=== PATIENT | male | born 1945 | race Caucasian/White ===

== ENCOUNTER → 2019-04-16 08:38 | Outpatient (BNVA) | payer MEDICARE, MEDICAID, SELFPAY | PROVIDERS: Family Provider Family Medicine; PCP Family Medicine; Visit Provider Urology | DX: N30.20 Other chronic cystitis without hematuria (principal); N99.89 Other postprocedural complications and disorders of genitourinary system | CPT/HCPCS: 81001 ==

== ENCOUNTER → 2019-05-26 11:46 | Outpatient (BNVA) | payer MEDICARE, MEDICAID, SELFPAY | PROVIDERS: Family Provider Family Medicine; PCP Family Medicine; Visit Provider Specialist | DX: Z96.643 Presence of artificial hip joint, bilateral (principal) | CPT/HCPCS: 73502 ==

== ENCOUNTER 2019-05-29 07:03 | Outpatient (CLI) | payer MEDICARE, MEDICAID, SELFPAY ==
--- NOTE | 2019-05-29 07:15 | XR_ITS ---
WS: [id number] XR KUB [id number] REASON FOR EXAM: RECURRENT UTI FINDINGS: Gas and fecal stasis throughout the colon are seen. Both hips are replacement prosthesis. Small calcified densities are seen in the left kidney suggesting renal calculus. There is arteriosclerotic changes of the iliac arteries. XR/XR KUB [id number] IMPRESSION: Small calcified densities suggesting renal calculus on the left.
== END 2019-05-29 07:04 | disposition home or self-care (01) ==
LOC: RAD 07:05
PROVIDERS: Family Provider Family Medicine; PCP Family Medicine; Visit Provider Urology
DX: N39.0 Urinary tract infection, site not specified (principal); N28.89 Other specified disorders of kidney and ureter; I70.8 Atherosclerosis of other arteries; Z96.643 Presence of artificial hip joint, bilateral
CPT/HCPCS: 74018; 81001; 87077; 87086; 87186

== ENCOUNTER → 2019-07-30 10:31 | Outpatient (BNVA) | payer MEDICARE, MEDICAID, SELFPAY | PROVIDERS: Family Provider Family Medicine; PCP Family Medicine; Visit Provider Urology | DX: N30.80 Other cystitis without hematuria (principal); R33.9 Retention of urine, unspecified | CPT/HCPCS: 81001 ==

== ENCOUNTER → 2019-09-25 12:12 | Outpatient (BNVA) | payer MEDICARE, MEDICAID, SELFPAY | PROVIDERS: Family Provider Family Medicine; PCP Family Medicine; Visit Provider Internal Medicine Cardiovascular Disease | DX: E78.2 Mixed hyperlipidemia (principal) | CPT/HCPCS: 80061 ==

== ENCOUNTER 2019-10-09 06:34 | Emergency (ER) | payer MEDICARE, MEDICAID, SELFPAY ==
[2019-10-09] VITALS (8 sets, daily range): BP systolic 142–192; BP diastolic 71–94; PULSE 61–94; RESP 15–24; TEMP 36.4; O2SAT 91–98; BMI 34.3
--- NOTE | 2019-10-09 06:49 | XRR_ITS ---
PROCEDURE INFORMATION: Exam: XR Chest, 1 View Exam date and time: 10/09/2019 7:07 AM Age: 74 years old Clinical indication: Other: Dysrhythmia/syncope; Prior surgery; Surgery date: 6+ months; Surgery type: Heart; Patient HX: Dysrhthmia/syncope TECHNIQUE: Imaging protocol: XR of the chest Views: 1 view. COMPARISON: CR Chest 1 [place] [id number] 01/19/2019 2:46 PM FINDINGS: Lungs: Interstitial prominence within the lung parenchyma likely fibrotic. Correlate. No focal consolidation. Pleural space: Unremarkable. No pleural effusion. No pneumothorax. Heart/Mediastinum: cardiac silhouette is enlarged. Prior sternotomy. Bones/joints: See Heart/Mediastinum finding. XR/XR chest 1V portable [id number] IMPRESSION: Interstitial prominence within the lung parenchyma likely fibrotic. Correlate. No focal consolidation.
--- NOTE | 2019-10-09 06:49 | CT_ITS ---
WS: [id number] CTA OF THE CHEST WITH PULMONARY EMBOLISM PROTOCOL TECHNIQUE: High-resolution contrast enhanced CTA of the chest with coronal and sagittal reformatted i mages with pulmonary embolism protocol. MIP images are also reviewed. CLINICAL INFORMATION: syncope COMPARISON: None. DLP: 881.[address] scans at [facility] use at least one of these dose optimization techniques: automat ed exposure control; mA and/or kV adjustment per patient size (includes targeted exams where dose is matched to clinical indication); or iterative reconstruction. FINDINGS: Proximal main pulmonary arteries are normal. Normal segmental and subsegmental pulmonary arteries. No evidence of pulmonary embolus. Aortic calcification. Normal caliber thoracic aorta. Coronary calcification. Moderate chronic emphyse matous changes. Subsegmental atelectasis in the lung bases. No acute-appearing pulmonary infiltrates. No focal pneumonia. Chronic rib fractures with callus formation. Prior sternotomy. Mild thoracic kyphosis. Chronic compr ession with anterior wedging in the mid and lower thoracic spine. Chronic compression deformity at T4 . Grade 1 anterolisthesis T3 on T4. Cholelithiasis. Small esophageal hiatal hernia. CT/CT angio chest PE protcl [id number] IMPRESSION: 1. No evidence for pulmonary embolus. 2. No acute pulmonary infiltrates. 3. Cholelithiasis. 4. Small esophageal hiatal hernia. 5. Additional chronic changes as described above
--- NOTE | 2019-10-09 06:51 | ECG_ITS ---
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 Measurements Intervals [place] Rate: 81 P: 89 AK: 262 QRS: -25 QRSD: 110 T: 65 QT: 405 QTc: 470 Interpretive Statements SINUS RHYTHM WITH FIRST DEGREE AV BLOCK WITH FREQUENT VENTRICULAR PREMATURE COMPLEXES BORDERLINE LEFT AXIS DEVIATION [QRS AXIS < -20] NONSPECIFIC T-WAVE ABNORMALITY Compared to ECG 01/19/2019 14:43:31 First degree AV block now present Atrial fibrillation no longer present T-wave abnormality still present Electronically Signed On 10-10-2019 0:09:08 CDT by Anne Marie Hughes M.D. [id number] f
--- NOTE | 2019-10-09 06:53 | PC.NURSE ---
Patient reports that he woke up this morning and went to the restroom when he got up off the toilet he passed out. Patient states he has been very dizzy and lightheaded. Patient also reports some diaphoresis and chest discomfort.
--- NOTE | 2019-10-09 07:06 | ED_ITS ---
HPI - Syncope General: Chief Complaint: Syncope Stated Complaint: SYNCOPED Time Seen by Provider: 10/09/19 06:49 History of Present Illness: HPI narrative: Patient states that he got out of bed to go to the bathroom. While in the bathroom or after he got up from the commode he felt very lightheaded and apparently had a syncopal event. Patient was unconscious for only a few seconds. He crawled partially back to his bedroom and then activated his life alert button. Upon EMS arrival patient was found in the prone position markedly diaphoretic. Patient denies chest pain or shortness of breath. He does have episodic severe lightheadedness that appears to coincide with bigeminy on the monitor. MD complaint: collapsed Onset (ago): minute(s) -: second(s) Prodromal symptoms: lightheaded Witnessed: No Context: standing up Injuries sustained associated with event: none Associated symptoms: Reports lightheadedness and nausea Treatments prior to arrival: IV fluids Review of Systems General: Reports: 10 or more systems reviewed and unremarkable except in HPI and below Card: Reports: lightheadedness GI: Reports: nausea PFSH ED PFSH: Medical History Atherosclerotic heart disease of [place] coronary artery with other forms of angina pectoris Atrial fibrillation with controlled ventricular response Benign essential HTN Carotid artery disease Patient is known to have bilateral carotid artery disease with no significant stenosis. He had a moderate plaques bilaterally. He has a history of recurrent TIAs as well. Cystitis cystica ESBL E. coli Treated with prolonged course of MACROBID and switched in July to METHENAMINE. Mixed hyperlipidemia Urinary retention Surgical History H/O heart bypass surgery History of bilateral hip arthroplasty History of hip surgery Family History Mother , AT AGE 54,HISTORY OF HEPATIC CANCER Cancer Father , AT AGE 78 No problems noted. Social History Smoking and tobacco status: never smoked Alcohol intake: never Adopted: No Caregiver/support person: No Lives independently: No Marital status: Current occupational status: retired History of recent travel: No Physical Exam Const: COMMON NORMALS: patient oriented x3 and alert GENERAL APPEARANCE: in distress, ill appearing and diaphoretic HENMT: COMMON NORMALS: normocephalic, atraumatic, external ears normal and Normal external nose present HEAD & SCALP: normocephalic and atraumatic FACE & SINUS: normal facial exam NOSE: Normal external nose present EXTERNAL EAR: Yes external ears normal MOUTH: Normal oral and palatal mucosa present Neck/C-Spine: COMMON NORMALS: full ROM, no lymphadenopathy, supple, no meningeal signs and no JVD GENERAL: Yes normal visual inspection Resp: COMMON NORMALS: normal respiratory effort, No retractions, No use of accessory muscles and clear to auscultation bilaterally AUSCULTATION: clear to auscultation bilaterally Cardio: COMMON NORMALS: no JVD, regular rate and regular rhythm RATE: regular rate RHYTHM: regular rhythm GI: COMMON NORMALS: Normal to inspection, nondistended, normoactive bowel sounds present, Soft to palpation, non-tender, No hepatosplenomegaly present and no masses INSPECTION: Yes normal to inspection AUSCULTATION: Yes normoactive bowel sounds PALPATION: Yes Soft to palpation and Yes No hepatosplenomegaly present PERCUSSION: normal to percussion : COMMON NORMALS: Yes no CVA tenderness BLADDER/KIDNEY EXAM: Yes no CVA tenderness Back/Pelvis: COMMON NORMALS: no CVA tenderness, thoracic and lumbar spine normal to inspection, no thoracic nor lumbar tenderness, thoraco-lumbar ROM normal and straight leg raise negative bilaterally Extremity: COMMON NORMALS: normal to inspection, full ROM, capillary refill normal, no joint enlargement, no clubbing, cyanosis or edema, no calf tenderness and no pedal edema Neuro: COMMON NORMALS: patient oriented x3, moves all extremities, no focal motor deficits and no sensory deficits noted SENSORIUM/ORIENTATION: Yes alert MENINGEAL SIGNS: Yes no meningeal signs Psych: COMMON NORMALS: mental status grossly normal, Normal thought process present, cooperative, normal affect and speech normal SPEECH: Yes normal speech THOUGHT PROCESS: Normal thought process present Skin: COMMON NORMALS: no rashes or lesions noted, no wounds, turgor normal, no jaundice, no petechiae and no mottling GENERAL SKIN EXAM: no rashes or lesions noted and turgor normal Course Vital Signs: Vital signs: Vital Signs Temperature 97.6 F 07/16/20 06:37 Pulse Rate 61 10/09/19 07:59 Respiratory Rate 20 H 10/09/19 07:37 Blood Pressure 159/89 10/09/19 07:59 Pulse Oximetry 98 10/09/19 07:59 MDM - Syncope Lab Data: Labs: Lab Results 10/09/19 10/09/19 10/09/19 Range/Units 07:25 07:25 07:25 WBC 11.4 H (4.0-10.0) 10^3/ uL RBC 5.14 (4.1-5.3) 10^6/u L Hgb 15.8 (11.7-16.6) g/dL Hct 45.9 (42.0-52.0) % MCV 89.3 (80-94) fL MCH 30.7 (28.0-34.0) pg MCHC 34.4 (30.0-36.0) g/dL RDW 13.1 (12.1-15.1) % Plt Count 152 (130-400) 10^3/c mm MPV 11.2 H (7.4-10.4) fL Neut % (Auto) 69.5 % Lymph % (Auto) 18.3 % [place] % (Auto) 8.2 % Eos % (Auto) 3.4 % Baso % (Auto) 0.2 % Neut # (Auto) 7.94 H (1.8-7.7) 10^3/u L Lymph # (Auto) 2.1 (0.8-4.8) 10^3/u L [place] # (Auto) 0.9 (0.2-0.9) 10^3/u L Eos # (Auto) 0.4 (0.0-0.8) 10^3/u L Baso # (Auto) 0.0 (0.0-0.1) 10^3/u L Nucleated RBC % (a uto) 0 % Nucleated RBCs # 0.0 /100WBC Sodium 130 L (136-145) mmol/L Potassium 3.1 L (3.5-5.1) mmol/L Chloride 91 L (98-107) mmol/L Carbon Dioxide 25 (22-29) mmol/L Anion Gap 17.1 (5-19) BUN 10 (8-23) mg/dL Creatinine 0.5 L (0.7-1.2) mg/dL Glucose 149 H (65-115) mg/dL Calculated Osmolal ity 269 L (285-295) mOsm/k g Lactate 1.2 (0.5-2.2) mmol/L Calcium 9.2 (8.5-10.5) mg/dL Total Bilirubin 1.0 (0.15-1.2) mg/dL AST 16 (0-40) U/L ALT 20 (0-41) U/L Alkaline Phosphata se 92 (40-130) IU/L Troponin T Baselin e (0-15) ng/L NT-Pro-B Natriuret Pep 1244 H (0-450) pg/mL Total Protein 7.5 (6.6-8.7) g/dL Albumin 4.4 (3.5-5.2) g/dL Globulin 3.1 (1.3-4.6) g/dL TSH 0.90 (0.27-4.20) uIU/ mL 10/09/19 Range/Units 07:25 WBC (4.0-10.0) 10^3/ uL RBC (4.1-5.3) 10^6/u L Hgb (11.7-16.6) g/dL Hct (42.0-52.0) % MCV (80-94) fL MCH (28.0-34.0) pg MCHC (30.0-36.0) g/dL RDW (12.1-15.1) % Plt Count (130-400) 10^3/c mm MPV (7.4-10.4) fL Neut % (Auto) % Lymph % (Auto) % [place] % (Auto) % Eos % (Auto) % Baso % (Auto) % Neut # (Auto) (1.8-7.7) 10^3/u L Lymph # (Auto) (0.8-4.8) 10^3/u L [place] # (Auto) (0.2-0.9) 10^3/u L Eos # (Auto) (0.0-0.8) 10^3/u L Baso # (Auto) (0.0-0.1) 10^3/u L Nucleated RBC % (a uto) % Nucleated RBCs # /100WBC Sodium (136-145) mmol/L Potassium (3.5-5.1) mmol/L Chloride (98-107) mmol/L Carbon Dioxide (22-29) mmol/L Anion Gap (5-19) BUN (8-23) mg/dL Creatinine (0.7-1.2) mg/dL Glucose (65-115) mg/dL Calculated Osmolal ity (285-295) mOsm/k g Lactate (0.5-2.2) mmol/L Calcium (8.5-10.5) mg/dL Total Bilirubin (0.15-1.2) mg/dL AST (0-40) U/L ALT (0-41) U/L Alkaline Phosphata se (40-130) IU/L Troponin T Baselin e 15 (0-15) ng/L NT-Pro-B Natriuret Pep (0-450) pg/mL Total Protein (6.6-8.7) g/dL Albumin (3.5-5.2) g/dL Globulin (1.3-4.6) g/dL TSH (0.27-4.20) uIU/ mL Discharge Plan Discharge Patient Disposition: Xfer Other Clinical Impression: Subdural hematoma, Bigeminy Fall Qualifiers: Encounter type: initial encounter Qualified Code(s): W19.XXXA - Unspecified fall, initial encounter Dysrhythmia Qualifiers: Arrhythmia type: unspecified cardiac arrhythmia Qualified Code(s): I49.9 - Cardiac arrhythmia, unspecified Condition: Fair Referrals: Alfredito Patten MD [Primary Care Provider] - Coding Level of Care Code ED Icu Nurse for g Fwd Exam Comprehensive
--- NOTE | 2019-10-09 07:21 | CT_ITS ---
WS: [id number] CT HEAD TECHNIQUE: Noncontrast CT of the head obtained from the skullbase to the vertex. CLINICAL INFORMATION: syncope COMPARISON: 01 19,019 DLP: 772.[address] scans at [facility] use at least one of these dose optimization techniques: automat ed exposure control; mA and/or kV adjustment per patient size (includes targeted exams where dose is matched to clinical indication); or iterative reconstruction. FINDINGS: Tiny thin acute appearing subdural hematoma overlying the right parietal lobe. This measures 3 mm in maximum dimension. Otherwise no evidence of intracranial hemorrhage. Ventricular system and basal cisterns are patent. Moderate small vessel changes with moderate parench ymal volume loss. 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 Chronic lacunar infarcts in the right caudate and basal ganglia b ilaterally. Vascular calcification. . Paranasal sinuses and mastoid air cells are well aerated. .Normal visualized soft tissues. Notified Ren Talavera DO at 10/09/2019 8:[address]/CT head wo con* [id number] IMPRESSION: 1. Tiny thin subdural hematoma overlying the right parietal lobe posteriorly. This measures 3 mm in maximum transverse dimension. No mass effect. 2. Moderate small vessel changes with moderate parenchymal volume loss. 3. Chronic infarct left parietal and occipital lobes unchanged. 4. Chronic lacunar infarcts in the right caudate and bilateral basal ganglia.
[2019-10-09] MEDS: ondansetron 2 mg/ML SDV 2 mL 8 MG IVP (07:34)
[2019-10-09 07:35] LABS: Basophils % 0.2 %; Eosinophils # 0.4 10^3/uL (0.0-0.8); Eosinophils % 3.4 %; Hematocrit 45.9 % (42.0-52.0); Hemoglobin 15.8 g/dL (11.7-16.6); Lymphocytes # 2.1 10^3/uL (0.8-4.8); Lymphocytes % 18.3 %; Mean Corpuscular HGB Conc 34.4 g/dL (30.0-36.0); Mean Corpuscular Hemoglobin 30.7 pg (28.0-34.0); Mean Corpuscular Volume 89.3 fL (80-94); Mean Platelet Volume 11.2 fL (7.4-10.4); Monocytes # 0.9 10^3/uL (0.2-0.9); Monocytes % 8.2 %; Neutrophils # 7.94 10^3/uL (1.8-7.7); Neutrophils % 69.5 %; Nucleated Red Blood Cells % 0 %; Platelet Count 152 10^3/cmm (130-400); Red Blood Count 5.14 10^6/uL (4.1-5.3); Red Cell Distribution Width 13.1 % (12.1-15.1); White Blood Count 11.4 10^3/uL (4.0-10.0)
[2019-10-09 07:48] LABS: Lactate (Lactic Acid level) 1.2 mmol/L (0.5-2.2)
[2019-10-09 07:50] LABS: Troponin(5th) Baseline 15 ng/L (0-15)
[2019-10-09 07:58] LABS: Alanine Aminotransferase 20 U/L (0-41); Albumin Level 4.4 g/dL (3.5-5.2); Alkaline Phosphatase 92 IU/L (40-130); Anion Gap 17.1 (5-19); Aspartate Amino Transferase 16 U/L (0-40); Blood Urea Nitrogen 10 mg/dL (8-23); Calcium 9.2 mg/dL (8.5-10.5); Carbon Dioxide 25 mmol/L (22-29); Chloride 91 mmol/L (98-107); Creatinine Clr Calc Pharmacy 79.7858; Globulin 3.1 g/dL (1.3-4.6); Glucose 149 mg/dL (65-115); NT Pro B Type Natriuretic Pept 1244 pg/mL (0-450); Osmolality Calculated 269 mOsm/kg (285-295); Potassium 3.1 mmol/L (3.5-5.1); Sodium 130 mmol/L (136-145); Total Protein 7.5 g/dL (6.6-8.7)
[2019-10-09] MEDS: iohexol 350 mg/mL 100 mL Btl IV (08:17)
--- NOTE | 2019-10-09 08:51 | ECG_ITS ---
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 Measurements Intervals [place] Rate: 72 P: 97 RI: 332 QRS: -23 QRSD: 114 T: 92 QT: 422 QTc: 464 Interpretive Statements Normal sinus rhythm with second-degree type I AV block BORDERLINE LEFT AXIS DEVIATION [QRS AXIS < -20] MODERATE INTRAVENTRICULAR CONDUCTION DELAY [110+ ms QRS DURATION] NONSPECIFIC T-WAVE ABNORMALITY CRITICAL TEST RESULT Compared to ECG 01/19/2019 14:43:31 Intraventricular conduction delay now present Atrial fibrillation no longer present T-wave abnormality still present Electronically Signed On 10-10-2019 1:36:46 CDT by Anne Marie Hughes M.D. [id number] f
[2019-10-09] MEDS: factor xa, inactivated-zhzo 400 MG in empty flexible container 1 EACH, non-DEHP filter ... 180 MG IV (09:17)
--- NOTE | 2019-10-09 09:30 | PC.NURSE ---
COVID swab collected and sent to lab at this time.
[2019-10-09 10:04] LABS: Add Urine Microscopic? YES; Bilirubin Urine Neg (NEGATIVE); Blood Urine Neg (Negative); Glucose Urine UA Norm (Normal); Ketones Urine 1+ (Negative); Leukocyte Esterase Urine Trace (Negative); Nitrate Urine Positive (Negative); Protein Urine Trace (Negative); Urine Color Yellow (Yellow); Urobilinogen Urine Norm (Negative); pH Urine 6.5 (5-7)
[2019-10-09 10:08] LABS: Add Urine Culture? Yes; Bacteria Urine 2+; Squamous Epithelial Cell Urine 0-4 (0-5); WBC Urine 25-40 /hpf (0-5)
--- NOTE | 2019-10-11 09:24 | PC.NURSE ---
URINE CULTURE BACK PT WAS TRANSFERED TO [facility] , [facility] CALLED AND RESULTS FAXED TO [facility] 8TH FLOOR
[2019-10-11 18:52] LABS: Coronavirus Lab Test PTC SEE REPORT
== END 2019-10-09 11:05 | disposition other institution (70) ==
PROVIDERS: Emergency Provider Family Medicine; Family Provider Family Medicine; PCP Family Medicine
DX: S06.5X9A Traumatic subdural hemorrhage with loss of consciousness of unspecified duration, initial encounter (principal); R00.8 Other abnormalities of heart beat; I49.9 Cardiac arrhythmia, unspecified; W19.XXXA Unspecified fall, initial encounter; I48.91 Unspecified atrial fibrillation; I25.118 Atherosclerotic heart disease of native coronary artery with other forms of angina pectoris; I10 Essential (primary) hypertension; E78.2 Mixed hyperlipidemia
CPT/HCPCS: 12345; 70450; 71045; 71275; 80053; 81001; 81003; 83605; 83880; 84443; 84484; 85025; 87040; 87077; 87086; 87186; 87635; 93005; 96374; 96375; 99284; 99285; J2405; J7169; Q9967

== ENCOUNTER → 2019-10-30 11:02 | Outpatient (BNVA) | payer MEDICARE, MEDICAID, SELFPAY | PROVIDERS: Family Provider Family Medicine; PCP Family Medicine; Visit Provider Urology | DX: N30.80 Other cystitis without hematuria (principal); R33.9 Retention of urine, unspecified | CPT/HCPCS: 80053; 81001; 87077; 87086; 87186 ==

== ENCOUNTER 2019-11-30 10:48 | Emergency (ER) | payer MEDICARE, MEDICAID, SELFPAY ==
--- NOTE | 2019-11-30 10:49 | XRR_ITS ---
PROCEDURE INFORMATION: Exam: XR Left Wrist Exam date and time: 11/30/2019 11:22 AM Age: 74 years old Clinical indication: Injury or trauma; Initial encounter; Blunt trauma (contusions or hematomas; Injury date: 11/29/2019; Injury details: Fall last pm, pain/swelling left wrist TECHNIQUE: Imaging protocol: XR Left wrist. Views: Frontal, lateral, and oblique views. COMPARISON: No relevant prior studies available. 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 No acute bony abnormality identified. The radiocarpal, intercarpal and carpometacarpal alignment is unremarkable. Soft tissues: Moderate dorsal soft tissue swelling. Vasculature: Vascular calcifications are present. XR/XR wrist LT min 3V* [id number] IMPRESSION: 1. 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 2. No acute bony injury identified.
--- NOTE | 2019-11-30 10:49 | XRR_ITS ---
PROCEDURE INFORMATION: Exam: XR Left Hand Exam date and time: 11/30/2019 11:23 AM Age: 74 years old Clinical indication: Injury or trauma; Initial encounter; Blunt trauma (contusions or hematomas; Injury date: 11/29/2019; Injury details: Fall last pm, pain/swelling left wrist TECHNIQUE: Imaging protocol: XR Left hand. Views: Frontal, lateral, and oblique views. COMPARISON: No relevant prior studies available. FINDINGS: Bones/joints: No acute bony abnormality identified. 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 Soft tissues: Moderate dorsal metacarpal soft tissue swelling. No ectopic gas or foreign body identified. Vasculature: Vascular calcifications are present. XR/XR hand LT min 3V* [id number] IMPRESSION: 1. Soft tissue swelling. 2. No acute bony injury identified. 3. 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
[2019-11-30 11:01] VITALS: BP 148/77; PULSE 70; RESP 18; TEMP 36.8; O2SAT 95; BMI 30.7
--- NOTE | 2019-11-30 11:01 | ED_ITS ---
HPI - Extremity Injury (Upper) General: Chief Complaint: Fall Stated Complaint: FALL /5,L HAND INJURY Time Seen by Provider: 11/30/19 10:50 Source: patient Mode of arrival: ambulatory Limitations: no limitations History of Present Illness: HPI narrative: Patient is a nice 74-year-old male who presents to ED today for evaluation of a left wrist and hand injury that he sustained yesterday after accidentally tripping over a curb and falling. He denies any other injury sustained during the fall. He did not strike his head, lose consciousness, and does not complain of neck or back pain. He does not complain of any numbness, tingling, loss of sensation to the extremity. He has not noticed any lacerations or abrasions. complaint: injury to: left, wrist and hand Onset (ago): day(s) (yesterday) Other Extremity Injury: Left: hand and wrist Other injuries: none Relieving factors: immobilization Exacerbating factors: movement of extremity Context: fall Associated symptoms: Reports no associated symptoms Review of Systems Musc: Reports: joint pain (L wrist/hand) and joint swelling (L wrist/hand) Neuro: Denies: numbness in extremities or sensory changes PFSH ED PFSH: Medical History (Updated 11/30/19 @ 11:52 by SARAHI Zamora) Atherosclerotic heart disease of [place] coronary artery with other forms of angina pectoris Atrial fibrillation with controlled ventricular response Benign essential HTN Carotid artery disease Patient is known to have bilateral carotid artery disease with no significant stenosis. He had a moderate plaques bilaterally. He has a history of recurrent TIAs as well. Cystitis cystica ESBL E. coli Treated with prolonged course of MACROBID and switched in July to METHENAMINE. Mixed hyperlipidemia Urinary retention Surgical History H/O heart bypass surgery History of bilateral hip arthroplasty History of hip surgery Family History Mother , AT AGE 54,HISTORY OF HEPATIC CANCER Cancer Father , AT AGE 78 No problems noted. Social History Smoking and tobacco status: never smoked Alcohol intake: never Adopted: No Caregiver/support person: No Lives independently: No Marital status: Current occupational status: retired History of recent travel: No Physical Exam Const: COMMON NORMALS: no acute distress, average body habitus, patient oriented x3, no limitations, healthy appearing, alert and well nourished Extremity: GENERAL: Yes normal exam except as noted OTHER: swelling noted to dorsum of L distal forearm/wrist/hand; pt states most of pain is in his hand although he was tender to wrist joint; maintains good ROM; no l acerations/abrasions noted; radial pulse and cap refill intact Neuro: COMMON NORMALS: patient oriented x3 and no sensory deficits noted SENSORIUM/ORIENTATION: Yes alert Course Vital Signs: Vital signs: Vital Signs Temperature 98.3 F 11/30/19 11:01 Pulse Rate 74 11/30/19 12:03 Respiratory Rate 16 11/30/19 12:03 Blood Pressure 134/66 11/30/19 12:03 Pulse Oximetry 96 11/30/19 12:03 MDM - Extremity Injury (Upper) MDM Narrative: Medical decision making narrative: upon my read of pts hand XR there appeared to be a small avulsion fragment from dorsal carpal bones with donor site uncertain but possible triquetrum; I spoke to vrad radiologist who felt this was most likely calcium deposit and did not feel the appearance represented an acute fx; pt did not want any form of splint/sabrina wrap; RICE therapy discussed; can followup with PCP in a week for continued pain Imaging Data^: XR L wrist: Radiologist's impression: [address] [place] [address] XRay Report Signed Patient: Franco Manuel Unit #: [id number] : 1945 Age/Sex: 74 / M ADM Date: 11/30/19 Loc: ER Room/Bed: Attending Dr: Ordering Provider/Ordering MD: Dinora Tovar DO Date of Service: 11/30/19 Procedure(s): XR wrist LT min 3V* 53482 Accession Number(s): [id number] Report Number: [id number] PROCEDURE INFORMATION: Exam: XR Left Wrist Exam date and time: 11/30/2019 11:22 AM Age: 74 years old Clinical indication: Injury or trauma; Initial encounter; Blunt trauma (contusions or hematomas; Injury date: 11/29/2019; Injury details: Fall last pm, pain/swelling left wrist TECHNIQUE: Imaging protocol: XR Left wrist. Views: Frontal, lateral, and oblique views. COMPARISON: No relevant prior studies available. 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 No acute bony abnormality identified. The radiocarpal, intercarpal and carpometacarpal alignment is unremarkable. Soft tissues: Moderate dorsal soft tissue swelling. Vasculature: Vascular calcifications are present. XR/XR wrist LT min 3V* 39901 IMPRESSION: 1. 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 2. No acute bony injury identified. Dictated By: Hiren Hernandez MD Signed By: Hiren Hernandez MD Signed Date/Time: 11/30/19 1141 DD/ 1140 XR L hand: Radiologist's impression: [address] [address] XRay Report Signed with Addenda Patient: Franco Manuel Unit #: [id number] : 1945 Age/Sex: 74 / M ADM Date: 11/30/19 Loc: ER Room/Bed: Attending Dr: Ordering Provider/Ordering MD: Dinora Tovar DO Date of Service: 11/30/19 Procedure(s): XR hand LT min 3V* 90610 Accession Number(s): [id number] Report Number: [id number] ADDENDUM XR/XR hand LT min 3V* 68743 THIS REPORT CONTAINS FINDINGS THAT MAY BE CRITICAL TO PATIENT CARE. The findings were verbally communicated by me to Dr. Olson via telephone conference at 11:47 AM CDT on 11/30/2019. The findings were acknowledged and understood. Addendum Dictated By: Hiren Hernandez MD Addendum Signed By: Hiren Hernandez MD Signed Date/Time: 1150 Addendum Cosigned By: PROCEDURE INFORMATION: Exam: XR Left Hand Exam date and time: 11/30/2019 11:23 AM Age: 74 years old Clinical indication: Injury or trauma; Initial encounter; Blunt trauma (contusions or hematomas; Injury date: 11/29/2019; Injury details: Fall last pm, pain/swelling left wrist TECHNIQUE: Imaging protocol: XR Left hand. Views: Frontal, lateral, and oblique views. COMPARISON: No relevant prior studies available. FINDINGS: Bones/joints: No acute bony abnormality identified. 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 Soft tissues: Moderate dorsal metacarpal soft tissue swelling. No ectopic gas or foreign body identified. Vasculature: Vascular calcifications are present. XR/XR hand LT min 3V* 96318 IMPRESSION: 1. Soft tissue swelling. 2. No acute bony injury identified. 3. 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 Dictated By: Hiren Hernandez MD Signed By: Hiren Hernandez MD Signed Date/Time: 11/30/191138 DD/ 1138 Discharge Plan Discharge Patient Disposition: Home Clinical Impression: Fall on same level from tripping, Sprain and strain of left hand Condition: Stable Prescriptions: No Action lidocaine HCl 2 % jelly 15 ml INTRA-URET ONCE Qty: 1 RF: 0 donepezil 10 mg tablet 10 mg PO DAILY RF: 0 tamsulosin 0.4 mg capsule 0.4 mg PO DAILY RF: 0 All Day Allergy (cetirizine) 10 mg capsule 10 mg PO DAILY RF: 0 citalopram 20 mg tablet 20 mg PO DAILY RF: 0 pantoprazole [Protonix] 40 mg tablet,delayed release (DR/EC) 40 mg PO DAILY RF: 0 alprazolam 0.25 mg tablet 0.25 mg PO BID PRN (Reason: Anxiety) RF: 0 prenat.vits,ameena,tbh-psrh-maoqp Tablet 1 tab PO DAILY RF: 0 montelukast 10 mg tablet 10 mg PO DAILY RF: 0 memantine 21 mg capsule,sprinkle,ER 24hr 21 mg PO DAILY RF: 0 methenamine hippurate 1 gram tablet 1 g PO BID Qty: 60 RF: 12 Hold Instructions: Doctor's Order gabapentin 300 mg capsule 300 mg PO TID RF: 0 metoprolol succinate 25 mg tablet extended release 24 hr 25 mg PO DAILY RF: 0 metoprolol succinate 50 mg tablet extended release 24 hr 50 mg PO DAILY 30 Days Qty: 90 RF: 1 nitrofurantoin monohyd/m-cryst [Macrobid] 100 mg capsule 100 mg PO BID Qty: 60 RF: 2 tramadol 50 mg Tablet 50 mg PO Q8H PRN (Reason: Pain) RF: 0 Nitrostat 0.4 mg Tablet, Sublingual 0.4 mg SUBLINGUAL Q5M PRN (Reason: Chest Pain) RF: 0 Flovent HFA 110 mcg/actuation Hfa Aerosol Inhaler 2 puff INHALATION BID RF: 0 Eliquis 2.5 mg Tablet 2.5 mg PO BID RF: 0 Combivent Respimat 20-100 mcg/actuation Mist 2 puff INHALATION QID RF: 0 Plavix 75 mg tablet 75 mg PO DAILY RF: 0 Crestor 10 mg tablet 10 mg PO DAILY RF: 0 Discharge Orders: Discharge Order (Routine); Ordered 11/30/19 Ordered By: Yudy Olson Referrals: Alfredito Patten MD [Primary Care Provider] - Patient Instructions: Wrist Injury (ED), Hand Sprain (ED) Activity Restrictions/Additional Instructions: Please ice and elevate the extremity. You may take dvbw-mxn-ldyivut Tylenol and /or Ibuprofen as needed. Please follow-up with your primary care provider in one week for non-improving pain. Discharge Date/Time: 11/30/19 12:14 Coding Level of Care Code ED Shoe Stitcher Odd for Chg Fwd Exam Expanded Problem Focused
[2019-11-30 11:27] VITALS: PULSE 64; RESP 16; O2SAT 98
--- NOTE | 2019-11-30 11:32 | PC.NURSE ---
INFORMED PROVIDER DAVID OF PT FALLING AND BUMPING THEIR HEAD AND ON BLOOD THINNERS.
[2019-11-30 12:03] VITALS: BP 134/66; PULSE 74; RESP 16; O2SAT 96
== END 2019-11-30 12:14 | disposition home or self-care (01) ==
PROVIDERS: Emergency Provider Physician Assistant; Family Provider Family Medicine; PCP Family Medicine
DX: S63.92XA Sprain of unspecified part of left wrist and hand, initial encounter (principal); S66.912A Strain of unspecified muscle, fascia and tendon at wrist and hand level, left hand, initial encounter; Z79.01 Long term (current) use of anticoagulants; Z79.02 Long term (current) use of antithrombotics/antiplatelets; W18.09XA Striking against other object with subsequent fall, initial encounter; I48.91 Unspecified atrial fibrillation; I10 Essential (primary) hypertension; E78.2 Mixed hyperlipidemia
CPT/HCPCS: 12345; 73110; 73130; 99281; 99283

== ENCOUNTER 2019-12-31 11:23 | Emergency (ER) | payer MEDICARE, MEDICAID, SELFPAY ==
[2019-12-31 11:23] VITALS: BP 127/65; PULSE 75; RESP 16; TEMP 37; O2SAT 94; BMI 30.7
--- NOTE | 2019-12-31 11:38 | CT_ITS ---
WS: [id number] CT HEAD NONCONTRAST HISTORY: recent intracranial bleed, new onset AMS TECHNIQUE: Contiguous axial imaging performed through the brain in 2.5 mm imaging. Bone and soft tiss ue windows. Sagittal and coronal reformats reviewed. All CT scans at [facility] use at le ast one of these dose optimization techniques: automated exposure control; mA and/or kV adjustment pe r patient size (includes targeted exams where dose is matched to clinical indication); or iterative r econstruction. DLP: 829.97 mGy.cm COMPARISON: 10/09/2019 No acute intracranial hemorrhage, midline shift or mass effect. Moderate atrophy and chronic ischemic changes. Chronic infarct in the LEFT posterior parietal and par ieto-occipital region. Large area of encephalomalacia and volume loss. Extensive lacunar infarcts yl ateral basal ganglia greater on the LEFT. Ventricles: Ventricles and extra-axial spaces are prominent on the basis of atrophy. Paranasal sinuses: As visualized are clear. Mastoid air cells: Well pneumatized. Calvarium and scalp: Skull is intact with no soft tissue edema or swelling. Extensive atherosclerosis in the intracranial carotid arteries. CT/CT head wo con* [id number] IMPRESSION: 1. No acute intracranial hemorrhage or subdural collection. Previously describ ed small subdural on 10/09/2019 has resolved. 2. Severe chronic microvascular ischemic disease with large chronic LEFT parie katherin and occipital infarcts. 3. Extensive bilateral lacunar infarcts.
--- NOTE | 2019-12-31 11:38 | ECG_ITS ---
[facility] Test Date: 2019-12-31 Pat Name: Franco Manuel Department: Room: Gender: Male Payroll And Benefits Coordinator: : 1945 Requested By: Dino De Santiago Order Number: [id number] Can MD: Anne Marie Hughes M.D. Measurements Intervals [place] Rate: 55 P: [place]: -1 QRS: -19 QRSD: 98 T: 116 QT: 447 QTc: 429 Interpretive Statements Sinus rhythm with first-degree AV block MODERATE VOLTAGE CRITERIA FOR LVH, CONSIDER NORMAL VARIANT [MEETS CRITERIA IN ONE OF: R(aVL), S(V1), R(V5), R(V5/V6)+S(V1)] NONSPECIFIC T-WAVE ABNORMALITY Compared to ECG 10/09/2019 08:02:26 Sinus rhythm no longer present Intraventricular conduction delay no longer present T-wave abnormality still present Electronically Signed On 12-31-2019 21:34:25 CDT by Anne Marie Hughes M.D. [email or web address]
--- NOTE | 2019-12-31 11:39 | XR_ITS ---
WS: [id number] XR chest 1V portable [id number] REASON FOR EXAM: dyspnea/cough FINDINGS: Sternal sutures. Markedly tortuous thoracic aorta. Mild cardiac enlargement. Prominent central vessels. Multiple old healed rib fractures. The chest appears unchanged compared to previous examination of 10/09/2019. XR/XR chest 1V portable [id number] IMPRESSION: No acute chest abnormality as above.
[2019-12-31 11:57] LABS: Basophils % 0.2 %; Eosinophils # 0.7 10^3/uL (0.0-0.8); Eosinophils % 11.8 %; Hematocrit 43.4 % (42.0-52.0); Hemoglobin 14.7 g/dL (11.7-16.6); Lymphocytes # 1.1 10^3/uL (0.8-4.8); Lymphocytes % 17.1 %; Mean Corpuscular HGB Conc 33.9 g/dL (30.0-36.0); Mean Corpuscular Hemoglobin 30.9 pg (28.0-34.0); Mean Corpuscular Volume 91.2 fL (80-94); Mean Platelet Volume 11.8 fL (7.4-10.4); Monocytes # 0.6 10^3/uL (0.2-0.9); Monocytes % 10.1 %; Neutrophils # 3.77 10^3/uL (1.8-7.7); Neutrophils % 60.6 %; Nucleated Red Blood Cells % 0 %; Platelet Count 142 10^3/cmm (130-400); Red Blood Count 4.76 10^6/uL (4.1-5.3); Red Cell Distribution Width 13.1 % (12.1-15.1); White Blood Count 6.2 10^3/uL (4.0-10.0)
--- NOTE | 2019-12-31 12:10 | ED_ITS ---
HPI - Altered Mental Status General: Chief Complaint: Altered Mental Status Stated Complaint: CONFUSION Time Seen by Provider: 12/31/19 11:23 History of Present Illness: HPI narrative: 74-year-old male presents to the emergency room with a report of increased confusion. He denies any shortness of breath or chest pain is no nausea vomiting or diarrhea he does admit to some slight dysuria he was recently treated for a cystitis but report to the nurse from the assisted living status is that he is not been taking his medication regularly. He denies any fever. MD complaint: altered mental status and confusion Onset (ago): hour(s) Timing confirmed by: caregiver Severity: mild Consistency of symptoms: Waxing and Waning Context: other (Recent cystitis) Associated symptoms: Deny auditory hallucinations, visual hallucinations, delusions, depression, homicidal ideation, racing thoughts or suicidal ideation Review of Systems Const: Denies: fever(s), chills, body aches, change in appetite, fatigue or malaise ENMT: Denies: throat pain, ear or mastoid pain, nasal discharge or nasal congestion Card: Denies: chest pain, edema, dyspnea on exertion or orthopnea Resp: Denies: dyspnea, productive cough or non-productive cough GI: Denies: abdominal pain, nausea, vomiting, hematemesis, coffee ground emesis, diarrhea, constipation, bloating, hematochezia or melena : Reports: dysuria; Denies: flank pain, urinary frequency or urinary urgency Skin/Breast: Denies: rash or pruritus Psych: Denies: depression, visual hallucinations, auditory hallucinations, suicidal ideation or homicidal ideation [facility] ED PFSH: Medical History (Updated 01/02/20 @ 18:08 by FABIAN Phillips) Atherosclerotic heart disease of [place] coronary artery with other forms of angina pectoris Atrial fibrillation with controlled ventricular response Benign essential HTN Carotid artery disease Patient is known to have bilateral carotid artery disease with no significant stenosis. He had a moderate plaques bilaterally. He has a history of recurrent TIAs as well. Cystitis cystica ESBL E. coli Treated with prolonged course of MACROBID and switched in July to METHENAMINE. Mixed hyperlipidemia Urinary retention Surgical History H/O heart bypass surgery History of bilateral hip arthroplasty History of hip surgery Family History Mother , AT AGE 54,HISTORY OF HEPATIC CANCER Cancer Father , AT AGE 78 No problems noted. Social History Smoking and tobacco status: never smoked Alcohol intake: never Adopted: No Caregiver/support person: No Lives independently: No Marital status: Current occupational status: retired History of recent travel: No Physical Exam Const: COMMON NORMALS: no acute distress GENERAL APPEARANCE: cooperative and comfortable ORIENTATION/CONSCIOUSNESS: Yes awake, Yes oriented to person, Yes oriented to place and Yes oriented to time HENMT: COMMON NORMALS: normocephalic, atraumatic and hearing grossly normal bilaterally HEAD & SCALP: normocephalic and atraumatic Neck/C-Spine: COMMON NORMALS: no JVD Resp: COMMON NORMALS: normal respiratory effort, No retractions, No use of accessory muscles and clear to auscultation bilaterally AUSCULTATION: clear to auscultation bilaterally Cardio: COMMON NORMALS: no JVD, regular rate, regular rhythm and No murmurs present (Cardio) RATE: regular rate RHYTHM: regular rhythm GI: COMMON NORMALS: Soft to palpation and No hepatosplenomegaly present AUSCULTATION: Yes normoactive bowel sounds PALPATION: Yes Soft to palpation, No Tenderness to palpation present (GI), No Guarding due to palpation present (GI) and Yes No hepatosplenomegaly present Extremity: COMMON NORMALS: normal to inspection, capillary refill normal, no clubbing, cyanosis or edema, no calf tenderness and no pedal edema Neuro: SENSORIUM/ORIENTATION: Yes oriented to person, Yes oriented to place and Yes oriented to time Psych: THOUGHT CONTENT: No delusions Skin: COMMON NORMALS: no rashes or lesions noted GENERAL SKIN EXAM: no rashes or lesions noted Course Vital Signs: Vital signs: Vital Signs Temperature 98.6 F 12/31/19 11:23 Pulse Rate 57 L 12/31/19 15:46 Respiratory Rate 13 12/31/19 15:46 Blood Pressure 143/73 12/31/19 15:46 Pulse Oximetry 95 12/31/19 15:46 MDM - Altered Mental Status MDM Narrative: Medical decision making narrative: Hematuria with a relatively unremarkable CT for renal stone. Think the CT is due to his cystitis at him being on Eliquis. He has no CVA tenderness I suspect the stranding around the kidneys is chronic at this point. I am going to switch him from Macrobid to Cipro and will have him follow-up through his PCP with the urine culture. Lab Data: Labs: Lab Results 12/31/19 12/31/19 12/31/19 Range/Units 11:46 11:46 12:15 WBC 6.2 (4.0-10.0) 10^3/ uL RBC 4.76 (4.1-5.3) 10^6/u L Hgb 14.7 (11.7-16.6) g/dL Hct 43.4 (42.0-52.0) % MCV 91.2 (80-94) fL MCH 30.9 (28.0-34.0) pg MCHC 33.9 (30.0-36.0) g/dL RDW 13.1 (12.1-15.1) % Plt Count 142 (130-400) 10^3/c mm MPV 11.8 H (7.4-10.4) fL Neut % (Auto) 60.6 % Lymph % (Auto) 17.1 % [place] % (Auto) 10.1 % Eos % (Auto) 11.8 % Baso % (Auto) 0.2 % Neut # (Auto) 3.77 (1.8-7.7) 10^3/u L Lymph # (Auto) 1.1 (0.8-4.8) 10^3/u L [place] # (Auto) 0.6 (0.2-0.9) 10^3/u L Eos # (Auto) 0.7 (0.0-0.8) 10^3/u L Baso # (Auto) 0.0 (0.0-0.1) 10^3/u L Nucleated RBC % (a uto) 0 % Nucleated RBCs # 0.0 /100WBC Specimen Type Arterial Sample Site Brachial, right ABG pH 7.41 (7.35-7.45) ABG pCO2 43.7 (35-45) mmHg ABG pO2 68.6 L (80.0-100.0) mmH g ABG HCO3 27.9 H (22-26) mmol/L ABG O2 Saturation 93.9 ABG Base Excess 2.8 H (-2.0-2.0) mmol/ L [place] Test Pos A-a O2 Gradient 3.6 L (5-10) mmHg Hematocrit 45.4 (42-52) % Hgb O2 Saturation 92.0 L (95-100) % Carboxyhemoglobin 1.4 (0.4-20.1) %THgb Methemoglobin 0.6 (0.4-1.5) % Total Hemoglobin 14.8 (14-18) g/dL Ionized Calcium 1.3 (1.1-1.4) mmol/L O2 Delivery Device Room air FiO2 21.0 % Dough Machine Operator ID Bd Sodium 138 138.0 (136-145) mmol/L Potassium 3.6 3.6 (3.5-5.1) mmol/L Chloride 100 (98-107) mmol/L Carbon Dioxide 26 (22-29) mmol/L Anion Gap 15.6 (5-19) BUN 12 (8-23) mg/dL Creatinine 0.6 L (0.7-1.2) mg/dL GFR Calculation Not Reportable Glucose 125 H 114.0 (65-115) mg/dL Calculated Osmolal ity 287 (285-295) mOsm/k g Calcium 9.6 (8.5-10.5) mg/dL Total Bilirubin 0.8 (0.15-1.2) mg/dL AST 16 (0-40) U/L ALT 16 (0-41) U/L Alkaline Phosphata se 104 (40-130) IU/L Total Protein 6.4 L (6.6-8.7) g/dL Albumin 4.0 (3.5-5.2) g/dL Globulin 2.4 (1.3-4.6) g/dL Urine Color (Yellow) Urine Appearance (CLEAR) Urine pH (5-7) Ur Specific Gravit y (1.005-1.030) Urine Protein (Negative) Urine Glucose (UA) (Normal) Urine Ketones (Negative) Urine Blood (Negative) Urine Nitrate (Negative) Urine Bilirubin (Negative) Urine Urobilinogen (Negative) mg/dL Ur Leukocyte Angela ase (Negative) Urine RBC (0-2) /hpf Urine WBC (0-5) /hpf Ur Squamous Epith Cells (0-5) /hpf Ur Transition Epit h Cell /hpf Amorphous Sediment Urine Bacteria (NONE) /hpf 12/31/19 Range/Units 12:40 WBC (4.0-10.0) 10^3/ uL RBC (4.1-5.3) 10^6/u L Hgb (11.7-16.6) g/dL Hct (42.0-52.0) % MCV (80-94) fL MCH (28.0-34.0) pg MCHC (30.0-36.0) g/dL RDW (12.1-15.1) % Plt Count (130-400) 10^3/c mm MPV (7.4-10.4) fL Neut % (Auto) % Lymph % (Auto) % [place] % (Auto) % Eos % (Auto) % Baso % (Auto) % Neut # (Auto) (1.8-7.7) 10^3/u L Lymph # (Auto) (0.8-4.8) 10^3/u L [place] # (Auto) (0.2-0.9) 10^3/u L Eos # (Auto) (0.0-0.8) 10^3/u L Baso # (Auto) (0.0-0.1) 10^3/u L Nucleated RBC % (a uto) % Nucleated RBCs # /100WBC Specimen Type Sample Site ABG pH (7.35-7.45) ABG pCO2 (35-45) mmHg ABG pO2 (80.0-100.0) mmH g ABG HCO3 (22-26) mmol/L ABG O2 Saturation ABG Base Excess (-2.0-2.0) mmol/ L [place] Test A-a O2 Gradient (5-10) mmHg Hematocrit (42-52) % Hgb O2 Saturation (95-100) % Carboxyhemoglobin (0.4-20.1) %THgb Methemoglobin (0.4-1.5) % Total Hemoglobin (14-18) g/dL Ionized Calcium (1.1-1.4) mmol/L O2 Delivery Device FiO2 % Dough Machine Operator ID Sodium (136-145) mmol/L Potassium (3.5-5.1) mmol/L Chloride (98-107) mmol/L Carbon Dioxide (22-29) mmol/L Anion Gap (5-19) BUN (8-23) mg/dL Creatinine (0.7-1.2) mg/dL GFR Calculation Glucose (65-115) mg/dL Calculated Osmolal ity (285-295) mOsm/k g Calcium (8.5-10.5) mg/dL Total Bilirubin (0.15-1.2) mg/dL AST (0-40) U/L ALT (0-41) U/L Alkaline Phosphata se (40-130) IU/L Total Protein (6.6-8.7) g/dL Albumin (3.5-5.2) g/dL Globulin (1.3-4.6) g/dL Urine Color Dark yellow (Yellow) Urine Appearance Hazy A (CLEAR) Urine pH 6 (5-7) Ur Specific Gravit y 1.015 (1.005-1.030) Urine Protein Neg (Negative) Urine Glucose (UA) Norm (Normal) Urine Ketones 1+ H (Negative) Urine Blood 3+ H (Negative) Urine Nitrate Negative (Negative) Urine Bilirubin Neg (Negative) Urine Urobilinogen 1 H (Negative) mg/dL Ur Leukocyte Angela ase Negative (Negative) Urine RBC >100 H (0-2) /hpf Urine WBC None (0-5) /hpf Ur Squamous Epith Cells 0-4 H (0-5) /hpf Ur Transition Epit h Cell 0-4 /hpf Amorphous Sediment Not Reportable Urine Bacteria Trace (NONE) /hpf Discharge Plan Discharge Patient Disposition: Home Clinical Impression: Cystitis Condition: Stable Prescriptions: New Cipro 500 mg tablet 500 mg PO BID 7 Days Qty: 14 RF: 0 Discontinued nitrofurantoin monohyd/m-cryst [Macrobid] 100 mg capsule 100 mg PO BID Qty: 60 RF: 2 No Action donepezil 10 mg tablet 10 mg PO DAILY RF: 0 tamsulosin 0.4 mg capsule 0.4 mg PO DAILY RF: 0 All Day Allergy (cetirizine) 10 mg capsule 10 mg PO DAILY RF: 0 citalopram 20 mg tablet 20 mg PO DAILY RF: 0 pantoprazole [Protonix] 40 mg tablet,delayed release (DR/EC) 40 mg PO DAILY RF: 0 alprazolam 0.25 mg tablet 0.25 mg PO BID PRN (Reason: Anxiety) RF: 0 prenat.vits,ameena,uxe-vhik-pnbxt Tablet 1 tab PO DAILY RF: 0 montelukast 10 mg tablet 10 mg PO DAILY RF: 0 memantine 21 mg capsule,sprinkle,ER 24hr 21 mg PO DAILY RF: 0 methenamine hippurate 1 gram tablet 1 g PO BID Qty: 60 RF: 12 Hold Instructions: Doctor's Order metoprolol succinate 25 mg tablet extended release 24 hr 25 mg PO DAILY RF: 0 metoprolol succinate 50 mg tablet extended release 24 hr 50 mg PO DAILY 30 Days Qty: 90 RF: 1 tramadol 50 mg Tablet 50 mg PO Q8H PRN (Reason: Pain) RF: 0 nitroglycerin [Nitrostat] 0.4 mg Tablet, Sublingual 0.4 mg SUBLINGUAL Q5M PRN (Reason: Chest Pain) RF: 0 Flovent HFA 110 mcg/actuation Hfa Aerosol Inhaler 2 puff INHALATION BID RF: 0 Eliquis 2.5 mg Tablet 2.5 mg PO BID RF: 0 Combivent Respimat 20-100 mcg/actuation Mist 2 puff INHALATION QID RF: 0 clopidogrel [Plavix] 75 mg tablet 75 mg PO DAILY RF: 0 rosuvastatin [Crestor] 10 mg tablet 10 mg PO DAILY RF: 0 isosorbide mononitrate 10 mg Tablet 10 mg PO DAILY RF: 0 Discharge Orders: Discharge Order (Routine); Ordered 12/31/19 Ordered By: Dino Brown Referrals: Alfredito Patten MD [Primary Care Provider] - Discharge Diet: Usual diet Discharge Activity: Increase activity as tolerated Activity Restrictions/Additional Instructions: Follow-up with your primary care doctor on the results of the urine culture. Return if any further problems. Stop your Macrobid and start ciprofloxacin Discharge Date/Time: 12/31/19 15:46 Coding Level of Care Code ED Agency Sales Representative for Chg Fwd Exam Comprehensive
[2019-12-31 12:12] LABS: Alanine Aminotransferase 16 U/L (0-41); Alkaline Phosphatase 104 IU/L (40-130); Anion Gap 15.6 (5-19); Aspartate Amino Transferase 16 U/L (0-40); Blood Urea Nitrogen 12 mg/dL (8-23); Calcium 9.6 mg/dL (8.5-10.5); Carbon Dioxide 26 mmol/L (22-29); Chloride 100 mmol/L (98-107); Globulin 2.4 g/dL (1.3-4.6); Glucose 125 mg/dL (65-115); Osmolality Calculated 287 mOsm/kg (285-295); Potassium 3.6 mmol/L (3.5-5.1); Sodium 138 mmol/L (136-145); Total Bilirubin 0.8 mg/dL (0.15-1.2); Total Protein 6.4 g/dL (6.6-8.7)
[2019-12-31 12:17] LABS: Creatinine Clr Calc Pharmacy 80.8369
[2019-12-31 12:36] LABS: ABG PCO2 43.7 mmHg (35-45); ABG PH Result 7.41 (7.35-7.45); Alveolar-Arterial Oxygen Gradi 3.6 mmHg (5-10); Arterial Blood Gas Hematocrit 45.4 % (42-52); Base Excess ABG 2.8 mmol/L (-2.0-2.0); Blood Gas Allen Test Pos; Blood Gas Operator Identificat BD; Blood Gas Sample Site Brachial, right; Blood Gas Sample Type Arterial; Carboxyhemoglobin 1.4 %THgb (0.4-20.1); HCO3 ABG 27.9 mmol/L (22-26); Ionized Calcium Level - ABG 1.3 mmol/L (1.1-1.4); Methemoglobin 0.6 % (0.4-1.5); Oxygen Device ROOM AIR; Oxygen Saturation ABG 93.9; PO2 ABG 68.6 mmHg (80.0-100.0); Potassium Level - ABG 3.6 mmol/L (3.5-5.0); Total Hemoglobin 14.8 g/dL (14-18)
[2019-12-31 12:42] VITALS: BP 125/64; PULSE 74; RESP 18; O2SAT 94
[2019-12-31 13:18] LABS: Urine Color Dark Yellow (Yellow)
[2019-12-31 13:19] LABS: Add Urine Microscopic? YES; Bilirubin Urine Neg (Negative); Blood Urine 3+ (Negative); Glucose Urine UA Norm (Normal); Ketones Urine 1+ (Negative); Leukocyte Esterase Urine Negative (Negative); Nitrate Urine Negative (Negative); Protein Urine Neg (Negative); Specific Gravity, Urine 1.015 (1.005-1.030); Urine Appearance Hazy (CLEAR); Urobilinogen Urine 1 mg/dL (Negative); pH Urine 6 (5-7)
[2019-12-31 13:23] LABS: Add Urine Culture? Yes; Bacteria Urine TRACE /hpf; RBC Urine >100 /hpf (0-2); Squamous Epithelial Cell Urine 0-4 /hpf (0-5); Transitional Epi Cells Urine 0-4 /hpf
--- NOTE | 2019-12-31 13:56 | CT_ITS ---
WS: [id number] CT ABDOMEN AND PELVIS NONCONTRAST HISTORY: flank pain TECHNIQUE: Imaging performed through the abdomen and pelvis. Coronal and sagittal reformats are submi tted. All CT scans at [facility] use at least one of these dose optimization techniques: automated exposure control; mA and/or kV adjustment per patient size (includes targeted exams where d ose is matched to clinical indication); or iterative reconstruction. DLP: 1512.51 mGy.cm COMPARISON: None available. Lower thorax: Chronic emphysema at the lung bases. Benign granuloma on the LEFT. Marked cardiomegaly. Small hiatal hernia. Liver: Normal size liver. No mass or bile duct dilatation. Gallbladder: Cholelithiasis without evidence for acute cholecystitis. Pancreas: Normal size and attenuation. Normal pancreatic duct. No pancreatitis or mass. Spleen: Normal. Adrenal glands: Normal. No mass. Right kidney: Perinephric stranding. No obstruction. No calcifications in the RIGHT ureter is normal caliber. Left kidney: Mild perinephric stranding with no calcification or obstruction. Normal caliber LEFT ure ter. Aorta: Moderate atherosclerosis with no aneurysm. There is also scattered calcification within the me senteric arteries. 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 No free fluid, intraperitoneal air or significant lymphadenopathy. GI tract: Normal appendix. There is diffuse constipation with diffuse diverticular disease. There is mild colonic stranding in the descending colon but no abscess or free fluid. Abdominal wall: Small fat-containing umbilical hernia. Pelvis: Well-distended urinary bladder. The bladder and the pelvic structures are obscured by patient 's hip prostheses causing significant artifact. Osseous structures: Diffuse osteopenia. Mild anterior wedging of T9 and T11. CT/CT kidney stone [id number] IMPRESSION: 1. No renal calcification or obstruction. 2. Mild bilateral perinephric stranding may be related to acute pyelonephritis or chronic. 3. Diffuse diverticulosis. Very mild pericolonic inflammation involving the de scending colon suspicious for early changes of diverticulitis. 4. 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 No evidence for mesenteric ischemia at this time. 5. Cholelithiasis without acute cholecystitis.
[2019-12-31 14:36] VITALS: BP 156/87; PULSE 49; RESP 18; O2SAT 95
--- NOTE | 2019-12-31 15:38 | ECG_ITS ---
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 Measurements Intervals [place] Rate: 45 P: VT: -1 QRS: 12 QRSD: 96 T: 141 QT: 496 QTc: 429 Interpretive Statements SINUS BRADYCARDIA WITH 2ND DEGREE AV BLOCK, MOBITZ TYPE I (WENCKEBACH) ST DEVIATION AND MODERATE T-WAVE ABNORMALITY, CONSIDER LATERAL ISCHEMIA [-0.1+ mV T WAVE IN I/aVL/V5/V6] CRITICAL TEST RESULT Compared to ECG 12/31/2019 12:12:33 Possible ischemia now present Atrial fibrillation no longer present T-wave abnormality still present Electronically Signed On 01-01-2020 21:41:16 CDT by Anne Marie Hughes M.D. [email or web address]/store/[id number] f
[2019-12-31 15:46] VITALS: BP 143/73; PULSE 57; RESP 13; O2SAT 95
== END 2019-12-31 15:46 | disposition home or self-care (01) ==
PROVIDERS: Emergency Provider Family Medicine; PCP Family Medicine
DX: N30.90 Cystitis, unspecified without hematuria (principal); Z79.01 Long term (current) use of anticoagulants; Z79.02 Long term (current) use of antithrombotics/antiplatelets; I48.91 Unspecified atrial fibrillation; I25.10 Atherosclerotic heart disease of native coronary artery without angina pectoris; I10 Essential (primary) hypertension; E78.2 Mixed hyperlipidemia; Z87.440 Personal history of urinary (tract) infections
CPT/HCPCS: 12345; 36415; 36600; 51701; 70450; 71045; 74176; 80051; 80053; 81001; 82810; 83986; 85025; 87040; 87086; 93005; 99284

== ENCOUNTER 2020-01-02 17:40 | Emergency (ER) | payer MEDICARE, MEDICAID, SELFPAY ==
--- NOTE | 2020-01-02 18:07 | W.ED.WEAKNES ---
HPI - Weakness General: Stated complaint: STATES HAS COVID BUT NO SYMPTOMS--IN COVID TRIAGE History of Present Illness: HPI Narrative: Patient comes in for worried about COVID illness. Patient tested positive several weeks ago, states feels fine. Is to be admitted to senior care on Sunday. Patient appears well. Patient appears in no pain Review of Systems General: Reports: 10 or more systems reviewed and unremarkable except in HPI and below PFSH ED PFSH: Medical History (Updated 01/02/20 @ 18:08 by FABIAN Phillips) Atherosclerotic heart disease of [place] coronary artery with other forms of angina pectoris Atrial fibrillation with controlled ventricular response Benign essential HTN Carotid artery disease Patient is known to have bilateral carotid artery disease with no significant stenosis. He had a moderate plaques bilaterally. He has a history of recurrent TIAs as well. Cystitis cystica ESBL E. coli Treated with prolonged course of MACROBID and switched in July to METHENAMINE. Mixed hyperlipidemia Urinary retention Surgical History H/O heart bypass surgery History of bilateral hip arthroplasty History of hip surgery Family History Mother , AT AGE 54,HISTORY OF HEPATIC CANCER Cancer Father , AT AGE 78 No problems noted. Social History Smoking and tobacco status: never smoked Alcohol intake: never Adopted: No Caregiver/support person: No Lives independently: No Marital status: Current occupational status: retired History of recent travel: No Physical Exam Const: COMMON NORMALS: no acute distress and patient oriented x3 GENERAL APPEARANCE: cooperative HENMT: COMMON NORMALS: normocephalic and Normal external nose present HEAD & SCALP: normal to inspection and normocephalic NOSE: Normal external nose present MOUTH: Normal oral and palatal mucosa present THROAT: posterior oropharynx normal Eye: GENERAL EYE: appearance normal, both eyes and all related structures Neck/C-Spine: COMMON NORMALS: full ROM Chest: COMMONS NORMALS: normal inspection of the chest Resp: COMMON NORMALS: normal respiratory effort EFFORT & INSPECTION: Yes able to speak in complete sentences Cardio: COMMON NORMALS: regular rate and regular rhythm RATE: regular rate RHYTHM: regular rhythm GI: COMMON NORMALS: non-tender Back/Pelvis: COMMON NORMALS: thoracic and lumbar spine normal to inspection Extremity: COMMON NORMALS: normal to inspection Neuro: COMMON NORMALS: patient oriented x3 and moves all extremities Psych: COMMON NORMALS: mental status grossly normal and cooperative Skin: COMMON NORMALS: no rashes or lesions noted GENERAL SKIN EXAM: no rashes or lesions noted MDM - Weakness MDM Narrative: Medical decision making narrative: patient comes in for worried about prior diagnosis of Covid. search of record notes no diagnosis. Patient exam is normal. Vital signs are normal. DDX URI, worried well, pneumoia. No signs of illness noted at this time. Patient recommended to monitor for worsening symptoms and return as needed. Patient is agreeable. Discharge Plan Discharge Patient Disposition: Home Clinical Impression: Worried well, History of 2019 novel coronavirus disease (COVID-19) Condition: Stable Prescriptions: No Action donepezil 10 mg tablet 10 mg PO DAILY RF: 0 tamsulosin 0.4 mg capsule 0.4 mg PO DAILY RF: 0 All Day Allergy (cetirizine) 10 mg capsule 10 mg PO DAILY RF: 0 citalopram 20 mg tablet 20 mg PO DAILY RF: 0 pantoprazole [Protonix] 40 mg tablet,delayed release (DR/EC) 40 mg PO DAILY RF: 0 alprazolam 0.25 mg tablet 0.25 mg PO BID PRN (Reason: Anxiety) RF: 0 prenat.vits,ameena,anl-oslc-xxopm Tablet 1 tab PO DAILY RF: 0 montelukast 10 mg tablet 10 mg PO DAILY RF: 0 memantine 21 mg capsule,sprinkle,ER 24hr 21 mg PO DAILY RF: 0 methenamine hippurate 1 gram tablet 1 g PO BID Qty: 60 RF: 12 Hold Instructions: Doctor's Order metoprolol succinate 25 mg tablet extended release 24 hr 25 mg PO DAILY RF: 0 metoprolol succinate 50 mg tablet extended release 24 hr 50 mg PO DAILY 30 Days Qty: 90 RF: 1 tramadol 50 mg Tablet 50 mg PO Q8H PRN (Reason: Pain) RF: 0 nitroglycerin [Nitrostat] 0.4 mg Tablet, Sublingual 0.4 mg SUBLINGUAL Q5M PRN (Reason: Chest Pain) RF: 0 Flovent HFA 110 mcg/actuation Hfa Aerosol Inhaler 2 puff INHALATION BID RF: 0 Eliquis 2.5 mg Tablet 2.5 mg PO BID RF: 0 Combivent Respimat 20-100 mcg/actuation Mist 2 puff INHALATION QID RF: 0 clopidogrel [Plavix] 75 mg tablet 75 mg PO DAILY RF: 0 rosuvastatin [Crestor] 10 mg tablet 10 mg PO DAILY RF: 0 isosorbide mononitrate 10 mg Tablet 10 mg PO DAILY RF: 0 Cipro 500 mg tablet 500 mg PO BID 7 Days Qty: 14 RF: 0 Discharge Orders: Discharge Order (Routine); Ordered 01/02/20 Ordered By: Tejinder Walton Referrals: Alfredito Patten MD [Primary Care Provider] - Discharge Diet: Usual diet Discharge Activity: Increase activity as tolerated Activity Restrictions/Additional Instructions: Drink plenty of fluids. Return to ER for shortness of breath or fever. Continue with routine care. Coding Level of Care Code ED Sales Representatives for Forrest Alford
[2020-01-02 18:31] VITALS: BMI 29.0
== END 2020-01-02 18:38 | disposition home or self-care (01) ==
PROVIDERS: Emergency Provider Nurse Practitioner Family; PCP Family Medicine
DX: Z03.89 Encounter for observation for other suspected diseases and conditions ruled out (principal); Z79.01 Long term (current) use of anticoagulants; Z79.02 Long term (current) use of antithrombotics/antiplatelets; I48.91 Unspecified atrial fibrillation; I10 Essential (primary) hypertension; E78.2 Mixed hyperlipidemia
CPT/HCPCS: 12345; 99281

== ENCOUNTER → 2020-04-20 13:37 | Outpatient (BNVA) | payer MEDICARE, MEDICAID, SELFPAY | PROVIDERS: PCP Family Medicine; Referring Provider Family Medicine; Visit Provider Orthopaedic Surgery | DX: M25.512 Pain in left shoulder (principal); M75.52 Bursitis of left shoulder | CPT/HCPCS: 73030 ==

== ENCOUNTER 2021-07-15 13:23 | Emergency (ER) | payer MEDICARE, MEDICAID, SELFPAY ==
--- NOTE | 2021-07-15 13:30 | CTR_ITS ---
PROCEDURE INFORMATION: Exam: CT Lumbar Spine Without Contrast Exam date and time: 07/15/2021 2:51 PM Age: 76 years old Clinical indication: Low back pain; Prior surgery; Surgery type: Thuan hips; Additional info: Eval for back pain TECHNIQUE: Imaging protocol: Computed tomography images of the lumbar spine without contrast. Radiation optimization: All CT scans at this facility use at least one of these dose optimization techniques: automated exposure control; mA and/or kV adjustment per patient size (includes targeted exams where dose is matched to clinical indication); or iterative reconstruction. COMPARISON: CR XR lumbar spine 2-3V* [id number] 07/14/2021 12:18 PM RADIATION DOSE METRICS: Total DLP (mGy-cm): 2511.02 FINDINGS: Vertebrae: Mild lower thoracic/lumbar dextroscoliosis. There is a moderate compression fracture of the L4 vertebra with 4 mm retropulsion mildly narrowing the canal. There is associated prevertebral soft tissue edema and/or hematoma consistent with an acute to subacute nature of the fracture. L1-L2: No significant disc protrusion. No severe spinal canal stenosis. No significant neural foraminal narrowing. L2-L3: No significant disc protrusion. No severe spinal canal stenosis. No significant neural foraminal narrowing. L3-L4: There is a minimal disc bulge, posterior osteophytes, and moderate to severe facet arthropathy. In combination with ligamentum flavum hypertrophy, there is moderate to severe canal stenosis at this level. L4-L5: There is a minimal disc bulge and moderate facet arthropathy. Mild bilateral neural foramina and canal narrowing. L5-S1: No significant disc protrusion. No severe spinal canal stenosis. No significant neural foraminal narrowing. Vasculature: Multi-vessel atherosclerotic disease. Soft tissues: See Vertebrae finding. CT/CT lumbar spine wo con* [id number] IMPRESSION: 1. There is a moderate acute to subacute compression fracture of the L4 vertebra with 4 mm retropulsion and mild canal narrowing. 2. At L3-L4 level there is a minimal disc bulge, posterior osteophytes, moderate to severe facet arthropathy, and ligamentum flavum hypertrophy contributing to moderate to severe canal stenosis.
[2021-07-15 14:09] VITALS: BP 159/58; PULSE 67; RESP 20; TEMP 36.3; O2SAT 96; BMI 33.3
--- NOTE | 2021-07-15 14:51 | W.ED.BACK ---
"HPI - Back Pain/Injury General: Chief Complaint: Back Pain/Injury Stated Complaint: low back pain Time Seen by Provider: 07/15/21 14:41 Source: patient Mode of arrival: ambulatory Limitations: no limitations History of Present Illness: Patient is a nice 76-year-old male presents to ED today with a complaint of lower back pain over the past 4.5 weeks. Patient denies any injury or trauma. He states pain does radiate down the bilateral posterior aspect of his legs and buttocks. He states he has seen his PCP Dr. Patten for the back pain and states he is being prescribed pain medications that does not seem to be controlling his discomfort. He is not having any pain in his abdomen or chest pain. He denies urinary symptoms. Pain is worsened with movements. Patient denies saddle anesthesia or bowel or bladder dysfunction. MD elicited complaint: back pain Pertinent past history: prior back pain Onset (ago): week(s) Timing: constant Similar Symptoms Previously: Yes Location: lumbar spine Radiation: buttocks, left upper leg and right upper leg Exacerbating factors: movement Relieving factors: none Associated symptoms: Reports no associated symptoms; Deny abdominal pain, chills, difficulty walking, dysuria, fatigue, fever(s) or hematuria Treatments prior to arrival: prescription analgesics Work related injury: No Review of Systems Const: Denies: fever(s), chills, body aches, fatigue or malaise Card: Denies: chest pain, palpitations, irregular heart rhythm, edema, swelling of feet/ankles or lightheadedness Resp: Denies: dyspnea GI: Denies: abdominal pain : Denies: flank pain, dysuria, urinary incontinence or hematuria Musc: Reports: back pain; Denies: neck pain, extremity pain, extremity swelling, joint pain, joint swelling, joint redness or limited range of motion Skin/Breast: Denies: rash Neuro: Denies: headache(s), numbness in extremities, weakness in extremities, sensory changes, lack of coordination, difficulty walking or dizziness [facility] ED PFSH: Medical History (Updated 07/15/21 @ 15:55 by SARAHI Zamora) Atherosclerotic heart disease of [place] coronary artery with other forms of angina pectoris Atrial fibrillation with controlled ventricular response Benign essential HTN Carotid artery disease Patient is known to have bilateral carotid artery disease with no significant stenosis. He had a moderate plaques bilaterally. He has a history of recurrent TIAs as well. Cystitis cystica ESBL E. coli Treated with prolonged course of MACROBID and switched in July to METHENAMINE. Mixed hyperlipidemia Urinary retention Surgical History H/O heart bypass surgery History of bilateral hip arthroplasty History of hip surgery Family History Mother , AT AGE 54,HISTORY OF HEPATIC CANCER Cancer Father , AT AGE 78 No problems noted. Social History Smoking and tobacco status: never smoked Alcohol intake: never Adopted: No Caregiver/support person: No Lives independently: No Marital status: Current occupational status: retired History of recent travel: No Physical Exam Const: COMMON NORMALS: no acute distress, patient oriented x3, no limitations, alert and well nourished GENERAL APPEARANCE: cooperative ORIENTATION/CONSCIOUSNESS: Yes awake, Yes oriented to person, Yes oriented to place and Yes oriented to time HENMT: COMMON NORMALS: normocephalic and atraumatic HEAD & SCALP: normal to inspection, normocephalic and atraumatic Neck/C-Spine: COMMON NORMALS: full ROM and no JVD GENERAL: Yes normal visual inspection Chest: COMMONS NORMALS: normal inspection of the chest and normal palpation of entire chest wall Resp: COMMON NORMALS: normal respiratory effort and clear to auscultation bilaterally AUSCULTATION: clear to auscultation bilaterally Cardio: COMMON NORMALS: no JVD, regular rate and regular rhythm RATE: regular rate RHYTHM: regular rhythm GI: COMMON NORMALS: Normal to inspection, nondistended, normoactive bowel sounds present, Soft to palpation and no masses INSPECTION: Yes normal to inspection PALPATION: Yes Soft to palpation and No Pulsatile mass present : COMMON NORMALS: Yes no CVA tenderness BLADDER/KIDNEY EXAM: Yes no CVA tenderness Back/Pelvis: COMMON NORMALS: no CVA tenderness THORACIC SPINE/UPPER BACK: Yes normal to inspection, Yes thoracic ROM normal, No thoracic spinal tenderness, No paraspinal muscle tenderness and No paraspinal muscle spasm LUMBAR SPINE/LOWER BACK: Yes normal to inspection, Yes lumbar ROM normal, Yes lumbar spinal tenderness (mid L spine), Yes paraspinal muscle tenderness Lumbar paraspinal muscle tenderness: left and No paraspinal muscle spasm PELVIS: Yes buttocks normal SACROILIAC JOINTS: Yes SI joint(s) abnormal SI joint details: tender to palpation (left) Extremity: COMMON NORMALS: normal to inspection, full ROM, capillary refill normal, no clubbing, cyanosis or edema, no calf tenderness and no pedal edema GENERAL: Yes normal exam except as noted Neuro: OSMAN COMA SCALE: document GCS findings Schwertner coma scale eye opening: Spontaneous Schwertner coma scale verbal response: Orientated Schwertner coma scale motor response: Obey commands Osman coma scale total score: 15 COMMON NORMALS: patient oriented x3, moves all extremities, no focal motor deficits, no sensory deficits noted and gait normal SENSORIUM/ORIENTATION: Yes alert, Yes oriented to person, Yes oriented to place and Yes oriented to time Skin: COMMON NORMALS: no rashes or lesions noted GENERAL SKIN EXAM: no rashes or lesions noted Course Vital Signs: Vital signs: Vital Signs Temperature 97.4 F L 07/15/21 14:09 Pulse Rate 67 07/15/21 14:09 Respiratory Rate 20 H 07/15/21 14:09 Blood Pressure 159/58 07/15/21 14:09 Pulse Oximetry 96 07/15/21 14:09 MDM - Back Pain/Injury Medical Decision Making Patient with a subacute L4 compression fracture. There is 4 mm retropulsion. At this time I will place patient in an LSO brace and have him follow-up with Dr. Spring/orthopedic spine. He is taking Tramadol for his pain w/o much relief. I will write him for hydrocodone he can use instead for severe pain only. Patient verbalized understanding. Labs Radiology Impressions Lumbar Spine CT 07/15/21 13:30 IMPRESSION: 1. There is a moderate acute to subacute compression fracture of the L4 vertebra with 4 mm retropulsion and mild canal narrowing. 2. At L3-L4 level there is a minimal disc bulge, posterior osteophytes, moderate to severe facet arthropathy, and ligamentum flavum hypertrophy contributing to moderate to severe canal stenosis. Discharge Plan Discharge Patient Disposition: Home Clinical Impression: Closed compression fracture of L4 vertebra Qualifiers: Encounter type: initial encounter Qualified Code(s): S32.040A - Wedge compression fracture of fourth lumbar vertebra, initial encounter for closed fracture Condition: Stable Prescriptions: New hydrocodone-acetaminophen 5-325 mg tablet 1 tab PO Q6H PRN (Reason: pain) Qty: 20 0RF No Action donepezil 10 mg tablet 10 mg PO DAILY 0RF tamsulosin 0.4 mg capsule 0.4 mg PO DAILY 0RF All Day Allergy (cetirizine) 10 mg capsule 10 mg PO DAILY 0RF citalopram 20 mg tablet 20 mg PO DAILY 0RF pantoprazole [Protonix] 40 mg tablet,delayed release (DR/EC) 40 mg PO DAILY 0RF alprazolam 0.25 mg tablet 0.25 mg PO BID PRN (Reason: Anxiety) 0RF prenat.vits,ameena,cel-wqds-yghqg Tablet 1 tab PO DAILY 0RF montelukast 10 mg tablet 10 mg PO DAILY 0RF memantine 21 mg capsule,sprinkle,ER 24hr 21 mg PO DAILY 0RF methenamine hippurate 1 gram tablet 1 g PO BID Qty: 60 12RF Hold Instructions: Doctor's Order Rx Instructions: 1 pill twice a day with 1 g vitamin C each dose In lieu of Macrobid which has been discontinued. metoprolol succinate 25 mg tablet extended release 24 hr 25 mg PO DAILY 0RF metoprolol succinate 50 mg tablet extended release 24 hr 50 mg PO DAILY 30 Days Qty: 90 1RF tramadol 50 mg Tablet 50 mg PO Q8H PRN (Reason: Pain) 0RF nitroglycerin [Nitrostat] 0.4 mg Tablet, Sublingual 0.4 mg SUBLINGUAL Q5M PRN (Reason: Chest Pain) 0RF Flovent HFA 110 mcg/actuation Hfa Aerosol Inhaler 2 puff INHALATION BID 0RF Eliquis 2.5 mg Tablet 2.5 mg PO BID 0RF Combivent Respimat 20-100 mcg/actuation Mist 2 puff INHALATION QID 0RF clopidogrel [Plavix] 75 mg tablet 75 mg PO DAILY 0RF rosuvastatin [Crestor] 10 mg tablet 10 mg PO DAILY 0RF isosorbide mononitrate 10 mg Tablet 10 mg PO DAILY 0RF Discharge Orders: Discharge ED (Routine); Ordered 07/15/21 Ordered By: Yudy Olson Referrals: Umberto Spring DO [Physician] - Alfredito Patten MD [Primary Care Provider] - Patient Instructions: Opioid Safety Activity Restrictions/Additional Instructions: [facility] | [facility] is committed to fighting the nationwide opiate epidemic. We are providing ALL patients with information regarding opiate safety. If you received opiate pain medication during your stay or if you received a prescription for opiate pain medication-please review this handout. If not, you may disregard. Thank you. As we discussed case management should reach out to you shortly to set you up with an appointment to see Dr. Spring-our orthopedic customer acquisition specialist. You need to wear your brace at all times apart from showering or bathing. I have written you a prescription for stronger pain medications as you stated the Tramadol was not controlling your discomfort. I do not want you to take both of these medications together so choose one or the other based on the amount of pain you are experiencing. Use the hydrocodone sparingly and for severe pain only. Coding Level of Care Code ED Phone Circuit Operator for Forrest Fwkwadwo Exam Comprehensive"
[2021-07-15 16:16] VITALS: RESP 18
[2021-07-15] MEDS: morphine 4 mg/mL SDV 1 mL IM (16:16)
[2021-07-15 16:56] VITALS: BP 171/51; PULSE 68; RESP 20
--- NOTE | 2021-07-18 09:58 | DCPLANNER ---
Addendum entered by Megan Ny 07/19/21 20:09: Patient had a follow up appointment scheduled for 07.19.[address] Spring at ortho -patient did attend appointment. Addendum entered by Megan Ny 07/19/21 08:42: Patient has a follow up appointment scheduled for Monday, July 19, 2021 at 2:[address] Spring at ortho. Clinic will call patient with appointment information. Original Note: environmental health and safety manager had message to schedule a followup appointment for patient with ortho. environmental health and safety manager sent patients information to the front office staff at ortho. Patients information will be printed and reviewed. Clinic will call patient with appointment.
== END 2021-07-15 16:57 | disposition home or self-care (01) ==
PROVIDERS: Emergency Provider Physician Assistant; PCP Family Medicine
DX: M48.56XA Collapsed vertebra, not elsewhere classified, lumbar region, initial encounter for fracture (principal); Z95.1 Presence of aortocoronary bypass graft; Z96.643 Presence of artificial hip joint, bilateral
CPT/HCPCS: 72131; 96372; 99283; J2270

== ENCOUNTER → 2021-07-19 14:14 | Outpatient (BNVA) | payer MEDICARE, MEDICAID, SELFPAY | PROVIDERS: PCP Family Medicine; Referring Provider Physician Assistant; Visit Provider Orthopaedic Surgery | DX: M48.56XA Collapsed vertebra, not elsewhere classified, lumbar region, initial encounter for fracture (principal) | CPT/HCPCS: 99204 ==

== ENCOUNTER 2021-08-12 05:40 | Day surgery (SDC) | payer MEDICARE, MEDICAID, SELFPAY ==
[2021-08-12] VITALS (15 sets, daily range): BP systolic 177–206; BP diastolic 75–112; PULSE 61–89; RESP 11–20; TEMP 36.1–36.4; O2SAT 92–100
--- NOTE | 2021-08-12 | SCC_ITS ---
Procedure: L4 Kyphoplasty 24.6 seconds of fluoroscopic guidance, for a cumulative dose of 90.64 mGy, was provided to Dr. Spring by the radiology department. C-arm images of the lumbar spine were saved for the patient's permanent record. BELEND
--- NOTE | 2021-08-12 05:50 | SC_ITS ---
WS: [id number] C-arm fluoroscopy of the lumbar spine for vertebroplasty, 08/12/2021 Clinical Data: Kyphoplasty L4 Comparison: None. Findings: Lumbar vertebroplasty was performed. SC/C-arm FL for Kyphoplasty Impression: Lumbar vertebroplasty.
--- NOTE | 2021-08-12 06:25 | ECG_ITS ---
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 Measurements Intervals [place] Rate: 52 P: VT: QRS: -16 QRSD: 109 T: 22 QT: 470 QTc: 440 Interpretive Statements SINUS BRADYCARDIA WITH 2ND DEGREE AV BLOCK, 2:1 OR MOBITZ TYPE I MODERATE VOLTAGE CRITERIA FOR LVH, CONSIDER NORMAL VARIANT CRITICAL TEST RESULT Compared to ECG 12/31/2019 14:14:57 T-wave abnormality no longer present Possible ischemia no longer present Electronically Signed On 08-12-2021 16:34:31 CDT by Jnaice Allen M.D. [email or web address]/store/OM/[id number]
[2021-08-12] MEDS: sodium chloride 0.9% 1,000 ML 30 ML IV (06:34)
--- NOTE | 2021-08-12 06:43 | ECG_ITS ---
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 Measurements Intervals [place] Rate: 46 P: NV: QRS: 73 QRSD: 105 T: 30 QT: 483 QTc: 424 Interpretive Statements SINUS BRADYCARDIA WITH 2ND DEGREE AV BLOCK, 2:1 OR MOBITZ TYPE I Compared to ECG 08/12/2021 06:29:43 Sinus bradycardia no longer present Electronically Signed On 08-13-2021 10:17:15 CDT by Janice Allen M.D. [email or web address] medical [email or web address].[employer]/store/OM/[id number]
--- NOTE | 2021-08-12 06:49 | W.PM.OPSUD ---
Surgery/Procedure H&P Update DATE OF PROCEDURE: August 12, 2021 DATE H&P PERFORMED: 07/19/21 H&P UPDATE INFORMATION: I have reviewed H&P completed within last 30 days, I have examined patient prior to procedure and No changes to prior documentation PREOP DIAGNOSIS: L4 compression fracture PLANNED PROCEDURE: Operation Date: 08/12/21 07:00 Proposed Procedures p l 4 Kyphoplasty 20409/wedge compression fracture of fourth lum vertebra,S32.040K(Not Applicable) - Umberto Spring DO Operation Date: 08/12/21 07:00 Proposed Procedures p l 4 Kyphoplasty 21455/wedge compression fracture of fourth lum vertebra,S32.040K(Not Applicable) - Umberto Spring DO
--- NOTE | 2021-08-12 06:49 | ANES.PREANE2 ---
Pre-Anesthetic Assessment Height/Weight: Height 1.68 m Weight 90.718 kg Temp Pulse Resp BP Pulse Ox 97 F L 61 18 206/75 97 08/12/21 06:29 08/12/21 06:29 08/12/21 06:29 08/12/21 06:29 08/12/21 06:29 Preop Diagnosis: L4 compression fracture Operation Date: 08/12/21 07:00 Proposed Procedures p l 4 Kyphoplasty 68198/wedge compression fracture of fourth lum vertebra,S32.040K(Not Applicable) - Umberto Spring DO Operation Date: 08/12/21 07:00 Proposed Procedures p l 4 Kyphoplasty 00628/wedge compression fracture of fourth lum vertebra,S32.040K(Not Applicable) - Umberto Spring DO Familial anesthetic complications: None Was Beta Rebecca taken within 24 hours: Yes Was Clonidine taken within 24 hours: N/A Last intake: Intake Last Liquid Date 08/11/21 Last Liquid Time 21:00 Last Solid Date 08/11/21 Last Solid Time 21:00 Social No alcohol and No tobacco Exam alert, oriented x 3, clear to auscultation bilaterally and regular rate & rhythm Airway Mallampati: Class III Dentition: false Pulmonary None reported CV/HEM Atrial Fibrillation, Coronary Artery Disease and Hypertension None reported Hepatic None reported GI Gastroesophageal Reflux Disease Metabolic Hyperlipidemia [facility] [place]/[facility] None reported Neuropsych Cerebrovascular Accident Anesthetic Plan ASA status: 4 Anesthesia: Choice Risk of > 500 ml blood loss (7ml/kg in children): No Medications/Allergies Home Medications Medication Instructions Recorded Confirmed Last Taken Type cetirizine 10 mg capsule (All Day 10 mg PO DAILY 04/15/19 08/12/21 08/11/21 History Allergy (cetirizine)) citalopram 20 mg tablet 20 mg PO DAILY 04/15/19 08/12/21 08/11/21 History donepezil 10 mg tablet 10 mg PO DAILY 04/15/19 08/12/21 08/11/21 History pantoprazole 40 mg tablet,delayed 40 mg PO DAILY 04/15/19 08/12/21 08/11/21 History release (Protonix) tamsulosin 0.4 mg capsule 0.4 mg PO DAILY 04/15/19 08/12/21 08/11/21 History alprazolam 0.25 mg tablet 0.25 mg PO BID PRN 05/29/19 08/12/21 08/09/21 History memantine 21 mg capsule 21 mg PO DAILY 05/29/19 08/12/21 08/11/21 History sprinkle,extended release 24hr (Namenda XR) montelukast 10 mg tablet 10 mg PO DAILY 05/29/19 08/12/21 08/11/21 History (Singulair) apixaban 2.5 mg tablet (Eliquis) 2.5 mg PO BID 10/09/19 08/12/21 08/09/21 History clopidogrel 75 mg tablet (Plavix) 75 mg PO DAILY 10/09/19 08/12/21 08/06/21 History fluticasone propionate 110 2 puff INHALATION BID 10/09/19 08/12/21 08/11/21 History mcg/actuation HFA aerosol inhaler (Flovent HFA) ipratropium 20 mcg-albuterol 100 2 puff INHALATION QID 10/09/19 08/12/21 08/11/21 History mcg/actuation mist for inhalation (Combivent Respimat) nitroglycerin 0.4 mg sublingual 0.4 mg SUBLINGUAL Q5M PRN 10/09/19 08/12/21 Unknown History tablet (Nitrostat) rosuvastatin 10 mg tablet (Crestor) 10 mg PO DAILY 10/09/19 08/12/21 08/11/21 History tramadol 50 mg tablet 50 mg PO Q8H PRN 10/09/19 08/12/21 08/11/21 History metoprolol succinate 25 mg 25 mg PO DAILY 10/30/19 08/12/21 08/11/21 History tablet,extended release 24 hr isosorbide mononitrate 10 mg tablet 10 mg PO DAILY 12/31/19 08/12/21 08/11/21 History calcium 600 mg-D3 800 unit-mag11 1 tab PO DAILY #30 tab 07/19/21 08/12/21 08/11/21 Rx 50 bz-jrod-aqdnvs-puma-s.borat tablet (Caltrate 600-D Plus Minerals) gabapentin 300 mg capsule 300 mg PO TID 08/09/21 08/12/21 08/11/21 History potassium chloride 20 mEq oral 20 meq PO DAILY 08/09/21 08/12/21 08/11/21 History packet (Klor-Con) Lactobacillus rhamnosus GG 10 1 cap PO DAILY 08/11/21 08/12/21 Unknown History billion cell capsule (Culturelle) acetaminophen 325 mg tablet 650 mg PO Q4H PRN 08/11/21 08/12/21 08/04/21 History (Tylenol) loperamide 2 mg capsule (Imodium 2 mg PO PRN PRN 08/11/21 08/12/21 07/30/21 History A-D) melatonin 1 mg tablet 1 mg PO DAILY 08/11/21 08/12/21 08/11/21 History oxycodone 5 mg tablet 5 mg PO Q6H 08/11/21 08/12/21 08/10/21 History tizanidine 2 mg tablet 2 mg PO TID 08/11/21 08/12/21 08/11/21 History vit A 1,000 unit-C 200 mg-E 60 1 tab PO DAILY 08/11/21 08/12/21 08/11/21 History unit-lutein 2 mg and minerals tablet (Healthy Eyes) Allergies Allergy/AdvReac Type Severity Reaction Status Date / Time No Known Allergies Allergy Verified 08/12/21 06:16 Current Medications Generic Name Dose Route Start Last Admin Trade Name Freq PRN Reason Stop Dose Admin Sodium Chloride 1,000 mls @ 30 mls/hr 08/12/21 06:00 08/12/21 06:34 Sodium Chloride 0.9% IV 08/13/21 05:59 30 mls/hr .Q24H TOMAS Administration PFSH Anesthesia Medical History (Updated 07/23/21 @ 00:01 by ) Atherosclerotic heart disease of [place] coronary artery with other forms of angina pectoris Atrial fibrillation with controlled ventricular response Benign essential HTN Carotid artery disease Patient is known to have bilateral carotid artery disease with no significant stenosis. He had a moderate plaques bilaterally. He has a history of recurrent TIAs as well. Cystitis cystica ESBL E. coli Treated with prolonged course of MACROBID and switched in July to METHENAMINE. Mixed hyperlipidemia Urinary retention Surgical History H/O heart bypass surgery History of bilateral hip arthroplasty History of hip surgery Family History Mother , AT AGE 54,HISTORY OF HEPATIC CANCER Cancer Father , AT AGE 78 No problems noted. Social History Smoking and tobacco status: never smoked Alcohol intake: never Adopted: No Caregiver/support person: No Lives independently: No Marital status: Current occupational status: retired History of recent travel: No Data Anesthesia Cardiac Studies: No Data to Display
[2021-08-12] MEDS: fentaNYL 50 mcg/mL INJ 2mL IVP ×2 (08:10→08:17)
--- NOTE | 2021-08-12 08:22 | PM.OP ---
Operative Report Date of procedure: August 12, 2021 Pre-op diagnosis: Preop Diagnosis L4 traumatic osteoporotic wedge compression fracture Post-op diagnosis: same Procedure done: L4 Kyphoplasty Pathology: L4 bone from vertebral body Surgeon: Umberto Spring Estimated blood loss (mL): 5 Procedure: L4 Kyphoplasty Patient is brought to the operative suite after undergoing anesthesia was placed in the prone position all areas impingement well-padded patient was prepped and draped normal sterile fashion. Biplanar fluoroscopy was brought in. AP lateral fluoroscopy were used. The L4 pedicles were identified in the lateral view showed the endplates of the fracture. Skin incision was made in the superior lateral position above the pedicles at the 11:00 and 1 o'clock position on the left and right pedicle respectively. The awl was inserted followed by biopsy tube. Biopsy was taken and sent to pathology. The drill was then used bilaterally. And balloons were used to inflate the elevate the endplate and make a void for the cement. Once the balloons were deflated and removed and then cement was placed into the void. The C-arm was used to ensure the cement did not leak laterally or of the endplates. Retract posteriorly. The vertebral body had a good fill of the vertebral body. Wounds were irrigated and closed with nylon suture. AP and lateral fluoroscopy ensured that the fracture and cement were in good position. Sterile dressings were applied and the patient was transferred to the PACU in stable condition.
[2021-08-12] MEDS: HYDROmorphone 1 mg/mL INJ 1 mL 0.5 MG IVP (08:23)
--- NOTE | 2021-08-12 09:07 | PC.NURSE ---
Dr Albarado ordered 10 mg IV Labetolol for high blood pressure in phase 2. Hold for 20 mins prior to DC.
[2021-08-12] MEDS: labetalol 5 mg/mL SDV 20mL 10 MG IVP (09:12)
[2021-08-12] MEDS: oxyCODONE 5 mg IR Tab/Cap PO (09:19)
--- NOTE | 2021-08-12 09:56 | ANE.PACU2 ---
Inpatient post-anesthesia follow up: Airway intact: Yes Vital signs: Temperature 97.0 F Pulse Rate 75 Respiratory Rate 20 Blood Pressure 204/96 Pulse Oximetry 93 Oxygen Delivery Me thod Room Air Oxygen Flow Rate 6 Fraction of Inspir ed Oxygen Hydration adequate: Yes Nausea and vomiting: No Pain level: 1 Mental status: Baseline Additional Comments: Patient experienced urinary rentention requiring straight cath - 600 cc drained. Patient states he often has trouble going, but he received glycopyrrolate intraop. Informed patient he may experience urinary retention again and if so he would need to go to ER. Nurse is reaching out to his assisted-living facility to let them know he may experience this and would require straight cath if occurs.
--- NOTE | 2021-08-12 10:19 | PC.NURSE ---
Dr Albarado had nurse straight cath pt for urinary retention. Cath yielded 600 ml of normal smelling, pale yellow urine. Pt voiced relief. Dr Albarado had RN call [place] to inform staff patient may need another straight cath due to a med given in OR to treat low HR with side effect of urinary retention. Pt's Bp also high 204/96, HR 75. Dr Albarado stated for patient to go home and take rest of home meds. Education provided to patient and friend at bedside. Denies needs at this time. Released to ready transportation with all personal belongings. Denies pain at this time.
--- NOTE | 2021-08-12 11:00 | ANE.PACU2 ---
Inpatient post-anesthesia follow up: Airway intact: Yes Vital signs: Temperature 97.0 F Pulse Rate 75 Respiratory Rate 20 Blood Pressure 204/96 Pulse Oximetry 93 Oxygen Delivery Me thod Room Air Oxygen Flow Rate 6 Fraction of Inspir ed Oxygen Hydration adequate: Yes Nausea and vomiting: No Pain level: 1 Mental status: Baseline
== END 2021-08-12 10:20 | disposition home or self-care (01) ==
PROVIDERS: PCP Family Medicine; Visit Provider Orthopaedic Surgery
PROC: (CPT 22514; principal; 2021-08-12 07:00)
DX: S32.040A Wedge compression fracture of fourth lumbar vertebra, initial encounter for closed fracture (principal); E78.5 Hyperlipidemia, unspecified; I48.91 Unspecified atrial fibrillation; I10 Essential (primary) hypertension; K21.9 Gastro-esophageal reflux disease without esophagitis; X58.XXXA Exposure to other specified factors, initial encounter; Z86.73 Personal history of transient ischemic attack (TIA), and cerebral infarction without residual deficits; I25.118 Atherosclerotic heart disease of native coronary artery with other forms of angina pectoris
CPT/HCPCS: 22514; 76000; 88307; 88311; 93005; J0690; J1100; J1170; J2250; J2405; J2704; J2710; J3010; J3490; J7030

== ENCOUNTER → 2021-08-25 09:58 | Outpatient (BNVA) | payer MEDICARE, MEDICAID, SELFPAY | PROVIDERS: PCP Family Medicine; Visit Provider Orthopaedic Surgery | DX: S32.040D Wedge compression fracture of fourth lumbar vertebra, subsequent encounter for fracture with routine healing (principal); X58.XXXD Exposure to other specified factors, subsequent encounter | CPT/HCPCS: 99213 ==

== ENCOUNTER → 2021-09-22 10:03 | Outpatient (BNVA) | payer MEDICARE, MEDICAID, SELFPAY | PROVIDERS: PCP Family Medicine; Visit Provider Orthopaedic Surgery | DX: Z47.89 Encounter for other orthopedic aftercare (principal); Z98.890 Other specified postprocedural states | CPT/HCPCS: 99213 ==